=== PATIENT | female | born 1975 | race Caucasian/White ===

== ENCOUNTER 2025-06-04 11:47 | Day surgery (SDC) | payer BC ==
[2025-05-31 13:32] VITALS: BMI 25.4
[2025-06-04 13:38] VITALS: TEMP 98
[2025-06-04 13:40] VITALS: BP 112/57; PULSE 62; RESP 19
== END 2025-06-04 13:20 | disposition home or self-care (01) ==
LOC: FASU-ENDO 11:47
PROVIDERS: ATTEND Internal Medicine Gastroenterology
PROC: 0DB68ZX Excision of Stomach, Via Natural or Artificial Opening Endoscopic, Diagnostic (ICD-10-PCS; 2025-06-04)
PROC: 0DB98ZX Excision of Duodenum, Via Natural or Artificial Opening Endoscopic, Diagnostic (ICD-10-PCS; principal; 2025-06-04 12:39)
DX: R10.13 Epigastric pain (principal)
CPT/HCPCS: 88305-TC; 88342-TC